=== PATIENT | male | born 1990 | race African-American/Black ===

== ENCOUNTER 2016-09-05 14:14 | Emergency (ER) | payer MEDICAID ==
[~2016-09-05] VITALS: Ht 185.4 cm; Wt 79.4 kg
[2016-09-05] MEDS ORDERED: HALOPERIDOL LACTATE INJ 5 MG/ML VIAL ONE (14:19)
[2016-09-05 14:26] LABS: BASOPHILS # (AUTO) 0.2 /CMM (0.0-0.2); BASOPHILS % (AUTO) 2.1 % (0.0-2.0); EOSINOPHILS % (AUTO) 0.4 % (0.0-6.0); HEMATOCRIT 46 % (39-51); LYMPHOCYTES # (AUTO) 1.9 /CMM (0.8-4.8); LYMPHOCYTES % (AUTO) 21.6 % (20.0-44.0); MEAN CORPUSCULAR HEMOGLOBIN 28 PG (26.0-33.0); MEAN CORPUSCULAR HGB CONC 32 g/dl (31.0-36.0); MEAN CORPUSCULAR VOLUME 86 fL (80-96); MONOCYTES # (AUTO) 0.4 /CMM (0.1-1.30); NEUTROPHILS # (AUTO) 6.1 /CMM (1.8-8.9); NEUTROPHILS % (AUTO) 70.9 % (43.0-81.0); PLATELET COUNT (AUTO) 113 /CMM (150-450); RDW COEFFICIENT OF VARIATION 12.9 (11.5-15.0); RED BLOOD CELL COUNT(AUTO) 5.43 MIL/uL (4.5-6.0); WHITE BLOOD COUNT (AUTO) 8.6 K/uL (4.3-11.0)
--- NOTE | 2016-09-05 14:26 | NUR ---
paris from [place] for evaluation of bizzare behavior. Patient is awake, however, pt is confused, unable to give pertinent history. Skin is warm to touch and non diaphoretic. Pt is afebrile. Connected pt to tele monitor. Will cont to monitor
--- NOTE | 2016-09-05 14:28 | NUR ---
Iv accessed to [facility]. Blood sample sent to lab
--- NOTE | 2016-09-05 14:29 | NUR ---
Haldol given as ordered. Patient connected to monitor
[2016-09-05] MEDS: HALOPERIDOL LACTATE INJ 5 MG/ML VIAL IM ONE (14:33)
--- NOTE | 2016-09-05 14:34 | NUR ---
Pt asleep. Vss.
[2016-09-05 14:36] LABS: CALCIUM, SERUM 9.4 mg/dL (8.5-10.1); CARBON DIOXIDE 29 mmol/L (21-32); CHLORIDE 103 mmol/L (98-107); CREATININE 1.3 mg/dL (0.6-1.3); GLUCOSE 63 mg/dL (74-106); POTASSIUM 4.7 mmol/L (3.5-5.1); SODIUM SERUM 140 mmol/L (136-145); UREA NITROGEN, BLOOD 13 mg/dL (7-18)
[2016-09-05 14:42] LABS: ALANINE AMINOTRANSFERASE 41 U/L (12-78); ALBUMIN 4.1 g/dL (3.4-5.0); ALCOHOL, BLOOD < 3 mg/dL (0-0); ALKALINE PHOSPHATASE 93 U/L (46-116); ASPARTATE AMINOTRANSFERASE 72 U/L (15-37); BILIRUBIN,DIRECT 0.2 mg/dL (0.0-0.2); BILIRUBIN,TOTAL 0.9 mg/dL (0.2-1.0); TOTAL PROTEIN, SERUM 7.5 g/dL (6.4-8.2)
[2016-09-05 14:44] LABS: TROPONIN I < 0.017 ng/mL (0.00-0.056)
--- NOTE | 2016-09-05 14:48 | NUR ---
Patient was taken to ct
--- NOTE | 2016-09-05 14:57 | NUR ---
RECEIVED CALL FROM JO-ANN, SAID SHE WILL SEND LEANN TO COME SEE PT
--- NOTE | 2016-09-05 15:06 | NUR ---
urine sample sent to lab
--- NOTE | 2016-09-05 15:15 | NUR ---
RICCO informed by Machine Ii Engraver Yecenia Knox that patient in need of a consult. RICCO attempted to speak to the patient, who was at the time sleeping. RICCO attempted several times to wake up the patient but was unsuccessful. RICCO spoke to the patient's nurse Elenita who stated that patient was given Haldol and that SW would be unable to wake the patient up. RICCO stated that she will inform Yecenia Knox. RICCO spoke to her and she stated that she will send crisis team to evaluate the patient later. Sofia in ER was notified.
--- NOTE | 2016-09-05 15:38 | NUR ---
RICCO attempted again to speak with the patient, who was still asleep. Sofia in ER attempted to wake patient up several times but he remained asleep. RICCO informed Sofia that Meera (paperboard machine operator) is on at 5pm and Sofia stated that she will call her once patient is awake and able to speak. Informed Timber Sprinkler Yecenia Knox.
[2016-09-05 19:24] VITALS: BP 131/81
--- NOTE | 2016-09-05 20:17 | NUR ---
CALLED [facility] FOR TRANSPORT TO [facility], ETA 30 MIN
--- NOTE | 2016-09-05 20:46 | NUR ---
PTIENT WAS PICKED UP BY [facility]. VSS
== END 2016-09-05 20:49 ==
LOC: ER 14:16
DX: F29 Unspecified psychosis not due to a substance or known physiological condition (principal)
CPT/HCPCS: 36415; 70450-TC; 80048-TC; 80076-TC; 80305; 84484-TC; 85025-TC; A4606; G0480; J1630; Z7610

== ENCOUNTER 2016-12-15 06:48 | Emergency (ER) | payer MEDICAID ==
[~2016-12-15] VITALS: Ht 182.9 cm; Wt 81.6 kg
--- NOTE | 2016-12-15 06:50 | NUR ---
[facility] [address] [employer] [address]. PT FOUND AT A [facility] FOR [employer]. PLACED ON MONITOR. GOWNED PT
[2016-12-15 07:58] LABS: BASOPHILS % (AUTO) 0.4 % (0.0-2.0); EOSINOPHILS # (AUTO) 0.1 /CMM (0.0-0.7); EOSINOPHILS % (AUTO) 0.9 % (0.0-6.0); HEMATOCRIT 46 % (39-51); HEMOGLOBIN 14.7 g/dL (13.5-17.5); LYMPHOCYTES # (AUTO) 1.5 /CMM (0.8-4.8); LYMPHOCYTES % (AUTO) 16.6 % (20.0-44.0); MEAN CORPUSCULAR HEMOGLOBIN 28 PG (26.0-33.0); MEAN CORPUSCULAR HGB CONC 32 g/dl (31.0-36.0); MEAN CORPUSCULAR VOLUME 86 fL (80-96); MONOCYTES # (AUTO) 0.5 /CMM (0.1-1.30); MONOCYTES % (AUTO) 5.7 % (2.0-12.0); NEUTROPHILS % (AUTO) 76.4 % (43.0-81.0); RDW COEFFICIENT OF VARIATION 13.2 (11.5-15.0); RED BLOOD CELL COUNT(AUTO) 5.31 MIL/uL (4.5-6.0); WHITE BLOOD COUNT (AUTO) 9.1 K/uL (4.3-11.0)
[2016-12-15 08:00] LABS: CALCIUM, SERUM 9.3 mg/dL (8.5-10.1); CARBON DIOXIDE 26 mmol/L (21-32); CHLORIDE 104 mmol/L (98-107); CREATININE 1.5 mg/dL (0.6-1.3); GLUCOSE 70 mg/dL (74-106); POTASSIUM 4.6 mmol/L (3.5-5.1); SODIUM SERUM 140 mmol/L (136-145); UREA NITROGEN, BLOOD 26 mg/dL (7-18)
[2016-12-15 08:10] LABS: ALANINE AMINOTRANSFERASE 41 U/L (12-78); ALBUMIN 3.9 g/dL (3.4-5.0); ALKALINE PHOSPHATASE 91 U/L (46-116); ASPARTATE AMINOTRANSFERASE 61 U/L (15-37); BILIRUBIN,DIRECT 0.1 mg/dL (0.0-0.2); BILIRUBIN,TOTAL 0.6 mg/dL (0.2-1.0); SALICYLATE 2.9 mg/dL (2.8-20.0); TOTAL PROTEIN, SERUM 7.4 g/dL (6.4-8.2)
[2016-12-15 08:12] LABS: ACETAMINOPHEN < 2 ug/ml (10-30)
[2016-12-15 08:18] LABS: ALCOHOL, BLOOD < 3 mg/dL (0-0)
--- NOTE | 2016-12-15 08:33 | NUR ---
URINE SAMPLE COLLECTED SENT TO LAB
[2016-12-15 08:39] LABS: APPEARANCE,URINE CLEAR (CLEAR); BILIRUBIN,URINE NEGATIVE (NEGATIVE); BLOOD, URINE 3+ Ery/uL (NEGATIVE); COLOR,URINE YELLOW (YELLOW); KETONES,URINE TRACE (NEGATIVE); LEUKOCYTE ESTERASE ,URINE NEGATIVE (NEGATIVE); NITRITE, URINE NEGATIVE (NEGATIVE); PH,URINE 5.5 (5.0-8.0); PROTEIN,URINE 1+ mg/dl (NEGATIVE); UGLUCOSE NEGATIVE (NEGATIVE); UROBILINOGEN,URINE 0.2 EU/dL (0.2)
[2016-12-15 08:44] LABS: PLATELET COUNT (AUTO) 136 /CMM (150-450)
[2016-12-15 10:01] LABS: WBC,URINE 0-2 /HPF (0-3)
[2016-12-15 10:02] LABS: BACTERIA,URINE Few /HPF (None Seen); SQUAMOUS EPITHELIAL CELL,UR Rare /HPF (None Seen)
--- NOTE | 2016-12-15 10:50 | NUR ---
JASON PAGED TO EVALUATE.
--- NOTE | 2016-12-15 11:32 | NUR ---
DR ROSEN IN TO SEE PT. PT IS AWAKE. STATES WANT TO GO HOME. DR ROSEN STATES NO NEED FOR PSYCH EVAL. AMBULATORY W/ STEADY GAIT. PROVIDED W/ FOOD AND ORAL FLUIDS. D/C HOME IN STABLE CONDITION.
[2016-12-15 11:35] VITALS: BP 132/77
== END 2016-12-15 11:37 | disposition home or self-care (01) ==
LOC: ER 06:49
DX: R45.851 Suicidal ideations (principal); F19.10 Other psychoactive substance abuse, uncomplicated; F17.200 Nicotine dependence, unspecified, uncomplicated
CPT/HCPCS: 36415; 80048-TC; 80076-TC; 80305; 81000-TC; 85025-TC; A4217; A4606; G0480; J3490; J7030; Z7610